=== PATIENT | male | born 1945 | race Two or more races ===

== ENCOUNTER 2019-02-16 19:55 | Inpatient (IN) | payer MEDICARE ==
[~2019-02-16] VITALS: Ht 167.6 cm; Wt 72.5 kg
[2019-02-20 13:00] VITALS: BP 125/82
== END 2019-02-20 14:57 | disposition home or self-care (01) | DRG 682 ==
LOC: ED 23:29 → EDIP 23:35 → 5SO 02-17 00:37 → DCLOUNGE 02-20 14:18
PROVIDERS: ADMIT Internal Medicine; ATTEND Internal Medicine
DX: N17.0 Acute kidney failure with tubular necrosis (principal); I50.43 Acute on chronic combined systolic (congestive) and diastolic (congestive) heart failure; I13.0 Hypertensive heart and chronic kidney disease with heart failure and stage 1 through stage 4 chronic kidney disease, or unspecified chronic kidney disease; D68.69 Other thrombophilia; J98.11 Atelectasis; N18.9 Chronic kidney disease, unspecified; G47.33 Obstructive sleep apnea (adult) (pediatric); I48.0 Paroxysmal atrial fibrillation; E78.00 Pure hypercholesterolemia, unspecified; E78.5 Hyperlipidemia, unspecified; I25.10 Atherosclerotic heart disease of native coronary artery without angina pectoris; N40.0 Benign prostatic hyperplasia without lower urinary tract symptoms; R09.02 Hypoxemia; Z79.01 Long term (current) use of anticoagulants; Z87.891 Personal history of nicotine dependence; Z95.1 Presence of aortocoronary bypass graft; Z99.81 Dependence on supplemental oxygen
CPT/HCPCS: 36415; 71045; 80048; 80053; 83735; 83880; 84436; 84443; 84484; 85025; 85610; 85730; 93005; 93306; 96374; 96375; G0378; J1940

== ENCOUNTER 2019-06-02 12:46 | Outpatient (CLI) | payer MEDICARE ==
[~2019-06-02 12:46] MED LIST: ASPI81TA59 PO; LISI-420 PO; METO25TA4 PO-COUM; METO50TA82 PO; SIMV20TA3 PO; TAMS-11 PO; WARF-36 PO; WARF3TAB PO-COUM
[2019-06-02] MEDS ORDERED: REGADENOSON 0.4 MG/5 ML SYRINGE ONE (14:31)
== END 2019-06-02 23:59 | disposition home or self-care (01) ==
LOC: CFH 12:46
PROVIDERS: ATTEND Internal Medicine Cardiovascular Disease
DX: I25.10 Atherosclerotic heart disease of native coronary artery without angina pectoris (principal)
CPT/HCPCS: 78452; 93017; A9502; J2785

== ENCOUNTER → 2019-08-31 | Outpatient (CLI) | payer MEDICARE ==
[~2019-08-31] MED LIST changes: +SIMV20TA19 PO; -SIMV20TA3 PO
== END | disposition home or self-care (01) ==
LOC: CFH 15:55
PROVIDERS: ATTEND Internal Medicine Cardiovascular Disease
DX: I08.8 Other rheumatic multiple valve diseases (principal); I25.10 Atherosclerotic heart disease of native coronary artery without angina pectoris
CPT/HCPCS: 93306

== ENCOUNTER 2019-09-20 10:39 | Day surgery (SDC) | payer MEDICARE ==
[~2019-09-20] VITALS: Ht 165.1 cm; Wt 75.0 kg
[2019-09-20 11:06] VITALS: BP 122/78
[2019-09-20] MEDS ORDERED: COUMADIN PO (11:16)
[2019-09-20] MEDS ORDERED: FURO-93 PO (11:16)
[2019-09-20] MEDS ORDERED: LISI-167 PO (11:16)
[2019-09-20] MEDS ORDERED: Vitamin D PO (11:16)
[2019-09-20] MEDS ORDERED: SODIUM CHLORIDE 0.9% 1,000 ML IV SCH (11:30)
== END 2019-09-20 14:24 | disposition home or self-care (01) ==
LOC: CACL 10:39
PROVIDERS: ATTEND Internal Medicine Cardiovascular Disease
DX: R53.83 Other fatigue (principal); R06.02 Shortness of breath; I08.1 Rheumatic disorders of both mitral and tricuspid valves; I25.10 Atherosclerotic heart disease of native coronary artery without angina pectoris; I48.20 Chronic atrial fibrillation, unspecified; I11.0 Hypertensive heart disease with heart failure; I50.30 Unspecified diastolic (congestive) heart failure; N28.9 Disorder of kidney and ureter, unspecified; E78.2 Mixed hyperlipidemia; Z95.1 Presence of aortocoronary bypass graft; Z79.82 Long term (current) use of aspirin; Z79.02 Long term (current) use of antithrombotics/antiplatelets; Z79.899 Other long term (current) drug therapy
CPT/HCPCS: 93312; 93321; 93325; J7030

== ENCOUNTER 2019-10-11 10:28 | Day surgery (SDC) | payer MEDICARE ==
[~2019-10-11] VITALS: Ht 165.1 cm; Wt 73.6 kg
[~2019-10-11 10:28] MED LIST changes: +COUMADIN PO; +FURO-93 PO; +LISI-167 PO; +Vitamin D PO
[2019-10-11 11:16] VITALS: BP 110/79
[2019-10-11 11:55] LABS: BASOPHILS # (AUTO) 0.02 x10^3/uL (0-0.1); BASOPHILS % (AUTO) 0 % (0-1); EOSINOPHILS # (AUTO) 0.09 x10^3/uL (0-0.4); EOSINOPHILS % (AUTO) 1 % (1-7); LYMPHOCYTES # (AUTO) 1.34 x10^3/uL (1-3.4); LYMPHOCYTES % (AUTO) 20 % (22-44); MD NO; MEAN CORPUSCULAR HEMOGLOBIN 28.1 pg (27.5-34.5); MEAN CORPUSCULAR HGB CONC 32.1 g/dL (33.2-36.2); MEAN CORPUSCULAR VOLUME 87.7 fL (81-97); MEAN PLATELET VOLUME 7.7 fL (7.4-10.4); MONOCYTES # (AUTO) 0.38 x10^3/uL (0.2-0.8); MONOCYTES % (AUTO) 6 % (2-9); NEUTROPHILS # (AUTO) 4.75 x10^3/uL (1.8-6.8); NEUTROPHILS % (AUTO) 72 % (42-75); PLATELET COUNT 235 x10^3/uL (130-400); RED BLOOD COUNT 3.72 x10^6/uL (4.38-5.82)
[2019-10-11 12:00] LABS: INTERNATIONAL NORMALIZED RATIO 1.29 (0.93-1.1); PROTHROMBIN TIME 13.7 Seconds (9.6-11.5)
[2019-10-11] MEDS ORDERED: MIDAZOLAM 1 MG/ML, 2ML ONE (12:09)
[2019-10-11] MEDS ORDERED: FENTANYL PF 100 MCG/2ML ONE (12:09)
[2019-10-11] MEDS ORDERED: HEPARIN 1,000 UNITS/ML, 10ML ONE (12:09)
[2019-10-11] MEDS ORDERED: LIDOCAINE-MPF 1%, 5ML ONE (12:09)
[2019-10-11] MEDS ORDERED: VERAPAMIL 2.5 MG/ML, 2ML ONE (12:09)
[2019-10-11 12:43] LABS: ANION GAP 8 mmol/L (5-15); CALCIUM 8.4 mg/dL (8.5-10.1); CHLORIDE 110 mmol/L (98-107); CREATININE 1.15 mg/dL (0.7-1.3)
[2019-10-11] MEDS ORDERED: SODIUM CHLORIDE 0.9% 1,000 ML IV SCH (13:12)
== END 2019-10-11 15:58 | disposition home or self-care (01) ==
LOC: CACL 10:28
PROVIDERS: ATTEND Internal Medicine Cardiovascular Disease
DX: I34.0 Nonrheumatic mitral (valve) insufficiency (principal); I25.10 Atherosclerotic heart disease of native coronary artery without angina pectoris; I25.82 Chronic total occlusion of coronary artery; I11.0 Hypertensive heart disease with heart failure; I50.30 Unspecified diastolic (congestive) heart failure; I48.20 Chronic atrial fibrillation, unspecified; E78.2 Mixed hyperlipidemia; N28.9 Disorder of kidney and ureter, unspecified; Z79.01 Long term (current) use of anticoagulants; Z79.82 Long term (current) use of aspirin; Z79.899 Other long term (current) drug therapy
CPT/HCPCS: 36415; 80048; 85025; 85610; 93459; 99156; C1769; C1894; J1644; J2250; J3010; Q9967

== ENCOUNTER → 2020-09-29 | Outpatient (CLI) | payer MEDICARE ==
[~2020-09-29] MED LIST changes: -LISI-420 PO; +LISI20TA21 PO
== END | disposition home or self-care (01) ==
LOC: CVU 15:31
PROVIDERS: ATTEND Internal Medicine Cardiovascular Disease
DX: I08.1 Rheumatic disorders of both mitral and tricuspid valves (principal); I48.91 Unspecified atrial fibrillation; Z95.1 Presence of aortocoronary bypass graft
CPT/HCPCS: 93306